=== PATIENT | male | born 1950 | race Caucasian/White ===

== ENCOUNTER 2016-12-17 06:53 | Day surgery (SDC) | payer OTHER ==
[~2016-12-17] VITALS: Ht 185.4 cm; Wt 100.2 kg
[~2016-12-17 06:53] MED LIST: ASPI325T4 PO; CALC600T10 OR; CARV25TA55 PO; DRON400T PO; FOLI1TAB6 PO; LOSA100T30 PO; MAGN400T5 PO; METH10TA6 PO; MULTTAB61 PO; NITR0.4S29 SL; OMEG100078 PO; PRAV20TA3 PO; TRAM50TA2 PO
[2016-12-17] MEDS ORDERED: IOHEXOL 350 MG/ML 100ML IJ ONE (07:14)
[2016-12-17] MEDS ORDERED: LIDOCAINE 2%HCL (LOCAL ANESTH.) INJ 20ML MDV ONE (07:14)
[2016-12-17] MEDS ORDERED: fentaNYL CITRATE 100 MCG/2 ML VL ONE (07:41)
[2016-12-17] MEDS ORDERED: ANGIOMAX 250 MG VIAL IV ONE (07:41)
[2016-12-17] MEDS ORDERED: SODIUM CHL 0.9% 0 ML ONE (07:42)
[2016-12-17] MEDS ORDERED: MIDAZOLAM HCL 1MG/1ML-2 ML VIAL ONE (07:42)
[2016-12-17] MEDS ORDERED: VERAPAMIL 2.5MG/ML INJ 2ML VIAL IV ONE (08:11)
== END 2016-12-17 12:00 | disposition home or self-care (01) ==
LOC: CATH 06:53
PROVIDERS: ATTEND Internal Medicine Cardiovascular Disease
DX: I49.8 Other specified cardiac arrhythmias (principal); I34.0 Nonrheumatic mitral (valve) insufficiency; I51.9 Heart disease, unspecified; I10 Essential (primary) hypertension; I48.91 Unspecified atrial fibrillation; Z88.8 Allergy status to other drugs, medicaments and biological substances
CPT/HCPCS: 93005; 93458; C1760; C1769; C1894; J1644; J2250; J3010; Q9967; 99152; 99153

== ENCOUNTER 2020-05-08 05:54 | Day surgery (SDC) | payer OTHER ==
[~2020-05-08] VITALS: Ht 182.9 cm; Wt 106.1 kg
[~2020-05-08 05:54] MED LIST changes: -ASPI325T4 PO; +DILT120T3 PO; -DRON400T PO; +EZET10TA22 PO; -LOSA100T30 PO; +MAGN400T40 PO; -MAGN400T5 PO; -METH10TA6 PO; +MEXI150C15 PO; +MULT-1018 PO; -MULTTAB61 PO; +RIV15T PO; +SACU1TAB PO; +TAMS0.4C36 PO
[2020-05-08] MEDS ORDERED: LIDOCAINE 1% HCL (LOCAL ANESTH.) INJ 20ML MDV ONE (06:55)
[2020-05-08] MEDS ORDERED: ceFAZolin 1GM/50ML 50 ML IV ONE (06:57)
[2020-05-08] MEDS ORDERED: LIDOCAINE 2% JELLY 11ml (GLYDO) ONE (07:01)
[2020-05-08] MEDS ORDERED: PROPOFOL 10 MG/ML 20 ML IV ONE (07:02)
[2020-05-08] MEDS ORDERED: fentaNYL CITRATE 100 MCG/2 ML VL ONE ×2 (07:02→07:44)
[2020-05-08] MEDS ORDERED: MIDAZOLAM HCL 2MG/2ML 2ml VIAL (1mg/ml) ONE (07:02)
[2020-05-08] MEDS ORDERED: KETAMINE HCL 10 ML ONE (07:02)
[2020-05-08] MEDS ORDERED: SODIUM CHLORIDE LOCK 10 ML ONE (07:02)
[2020-05-08] MEDS ORDERED: ONDANSETRON HCL 4 MG/2 ML VIAL ONE (07:02)
[2020-05-08] MEDS ORDERED: HYDROmorphone HCL 2 MG/ML VL IV PRN (07:30)
[2020-05-08] MEDS ORDERED: ONDANSETRON HCL 4 MG/2 ML VIAL IV PRN (07:30)
[2020-05-08] MEDS ORDERED: MORPHINE SULFATE 4 MG/ML SYR/VIAL IV PRN (07:30)
[2020-05-08 11:30] VITALS: BP 140/89
== END 2020-05-08 13:46 | disposition home or self-care (01) ==
LOC: SUR 05:54
PROVIDERS: ATTEND Urology
DX: D49.4 Neoplasm of unspecified behavior of bladder (principal); C67.2 Malignant neoplasm of lateral wall of bladder; I10 Essential (primary) hypertension; I13.0 Hypertensive heart and chronic kidney disease with heart failure and stage 1 through stage 4 chronic kidney disease, or unspecified chronic kidney disease; N18.1 Chronic kidney disease, stage 1; G89.29 Other chronic pain; I48.91 Unspecified atrial fibrillation; I34.1 Nonrheumatic mitral (valve) prolapse; F32.9 Major depressive disorder, single episode, unspecified; I49.9 Cardiac arrhythmia, unspecified; I25.10 Atherosclerotic heart disease of native coronary artery without angina pectoris; Z98.890 Other specified postprocedural states; Z79.899 Other long term (current) drug therapy; Z87.891 Personal history of nicotine dependence; Z96.89 Presence of other specified functional implants; Z68.31 Body mass index [BMI] 31.0-31.9, adult; Z88.8 Allergy status to other drugs, medicaments and biological substances; Z68.32 Body mass index [BMI] 32.0-32.9, adult; Z20.822 Contact with and (suspected) exposure to COVID-19
CPT/HCPCS: 52240; 88305; J0690; J2001; J2250; J2405; J2704; J3010; U0003

== ENCOUNTER 2020-09-11 07:23 | Day surgery (SDC) | payer OTHER ==
[~2020-09-11] VITALS: Ht 184.2 cm; Wt 106.1 kg
[2020-09-11] MEDS ORDERED: mitoMYcin 40 MG in STERILE WATER 60 ML IS ONE (08:45)
[2020-09-11] MEDS ORDERED: PROPOFOL 10 MG/ML 20 ML IV ONE (09:22)
[2020-09-11] MEDS ORDERED: ONDANSETRON HCL 4 MG/2 ML VIAL ONE (09:22)
[2020-09-11] MEDS ORDERED: MIDAZOLAM HCL 1MG/1ML-2 ML VIAL ONE (09:22)
[2020-09-11] MEDS ORDERED: SODIUM CHLORIDE LOCK 10 ML ONE (09:22)
[2020-09-11] MEDS ORDERED: fentaNYL CITRATE 100 MCG/2 ML VL ONE (09:22)
[2020-09-11] MEDS ORDERED: CIPROFLOXACIN 400MG/200ML 200 ML IV ONE (09:42)
[2020-09-11] MEDS ORDERED: BUPIVACAINE 0.5% P/F INJ 10 ML VIAL ONE (10:00)
[2020-09-11] MEDS ORDERED: EPINEPHrine HCL 1 MG/1 ML AMP ONE (10:01)
[2020-09-11] MEDS ORDERED: LIDOCAINE 2% (LOCAL ANESTH.) PF 5ml SDV ONE (11:01)
[2020-09-11] MEDS ORDERED: HYDROmorphone HCL 2 MG/ML VL IV PRN (11:30)
[2020-09-11] MEDS ORDERED: METOCLOPRAMIDE HCL 5MG/ml INJ 2ml VIAL IV PRN (11:30)
[2020-09-11] MEDS ORDERED: MORPHINE SULFATE 4 MG/ML SYR/VIAL IV PRN (11:30)
[2020-09-11 14:57] VITALS: BP 148/92
== END 2020-09-11 15:20 | disposition home or self-care (01) ==
LOC: SUR 07:23
PROVIDERS: ATTEND Urology
DX: D49.4 Neoplasm of unspecified behavior of bladder (principal); C68.0 Malignant neoplasm of urethra; I48.91 Unspecified atrial fibrillation; I25.10 Atherosclerotic heart disease of native coronary artery without angina pectoris; I42.9 Cardiomyopathy, unspecified; I49.9 Cardiac arrhythmia, unspecified; I13.0 Hypertensive heart and chronic kidney disease with heart failure and stage 1 through stage 4 chronic kidney disease, or unspecified chronic kidney disease; N18.30 Chronic kidney disease, stage 3 unspecified; Z87.891 Personal history of nicotine dependence; Z88.8 Allergy status to other drugs, medicaments and biological substances; Z20.822 Contact with and (suspected) exposure to COVID-19; Z98.890 Other specified postprocedural states; Z79.899 Other long term (current) drug therapy; Z96.89 Presence of other specified functional implants; Z68.31 Body mass index [BMI] 31.0-31.9, adult
CPT/HCPCS: 51720; 52234; J0171; J0744; J2001; J2250; J2405; J2704; J3010; J3490; J9280; U0003